=== PATIENT | male | born 1965 | race Caucasian/White ===

== ENCOUNTER 2024-01-05 17:08 | Emergency (ER) | payer MEDICAID, OTHER, SELFPAY ==
[2024-01-05 18:25] LABS: Bilirubin Neg (Negative); Blood, Urine 10 (Negative); Clarity Clear (Clear); Glucose, Urine (Dipstick) Normal (Negative); Ketone, Urine Negative (Negative); Leukocyte Negative (Negative); Nitrite Negative (Negative); Protein, Urine (Dipstick) Negative (Neg-Trace); Urobilinogen Normal mg/dL (Less than 2)
[2024-01-05 18:32] LABS: Bacteria/HPF Rare-Few HPF (None Seen); CAUTI Indications for Culture Pelvic or flank pain; Mucous/LPF Rare LPF (<2+); RBC/HPF 0-3 HPF (0-3); Squamous Epithelial None Seen HPF (0-3); WBC/HPF 0-3 HPF (0-3)
[2024-01-05 18:33] LABS: Urine Culture Reflex No No
[2024-01-05 19:34] LABS: #Basophils 0.06 10x3/uL (0.0-0.2); #Eosinphils 0.58 10x3/uL (0.0-0.5); #Monocytes 0.64 10x3/uL (0.0-1.1); #Neutrophils 2.57 10x3/uL (1.5-8.4); %Basophils 1.1 % (0.0-2.0); %Eosinophils 10.5 % (0.0-6.0); %Lymphocytes 29.9 % (18.0-47.0); %Monocytes 11.5 % (0.0-10.0); %Neutrophils 46.3 % (40.0-75.0); Hematocrit 30.2 % (38.8-50.0); Hemoglobin 10.2 g/dL (13.5-17.5); Mean Corpuscular HGB CONC 33.8 g/dL (32.0-36.0); Mean Corpuscular Hemoglobin 31.1 pg (27.0-33.0); Mean Corpuscular Volume 92.1 fL (81.2-95.1); Mean Platelet Volume 9.6 fL (7.4-10.4); Platelet Count 121 10x3/uL (150-450); RBC Distribution Width 14.5 % (11.5-14.5); Red Blood Cell (RBC) Count 3.28 10x6/uL (4.32-5.72); White Blood Cell (WBC) Count 5.6 10x3/uL (3.5-10.5)
[2024-01-05] MEDS ORDERED: Acetaminophen 500 MG TAB ONE (19:35)
[2024-01-05 19:53] LABS: ALT (SGPT) 12 U/L (8-55); AST (SGOT) 22 U/L (5-34); Albumin 3.3 g/dL (3.5-5.0); Alkaline Phosphatase 47 U/L (40-110); Anion Gap 9 mmol/L (10-20); BUN (Urea Nitrogen) 10 mg/dL (8.4-25.7); Bilirubin, Total 0.2 mg/dL (0.2-1.2); Calc. Creatinine Clearance 0 mL/min (70-130); Calcium 8.7 mg/dL (7.8-10.44); Carbon Dioxide 26 mmol/L (22-29); Chloride 107 mmol/L (98-107); Estimated GFR 73; Glucose 76 mg/dL (70-105); Potassium 4.2 mmol/L (3.5-5.1); Protein, Total 6.3 g/dL (6.0-8.3); Sodium 138 mmol/L (136-145)
[2024-01-06 14:27] LABS: Chlam.trachomatis by PCR,Urine Not Detected (NotDetected); GC N.gonorrhoeae PCR,UrineVOID Not Detected (NotDetected)
== END 2024-01-05 20:54 | disposition home or self-care (01) ==
LOC: CSHERS 17:08
DX: J18.9 Pneumonia, unspecified organism (principal); R31.9 Hematuria, unspecified; R10.9 Unspecified abdominal pain
CPT/HCPCS: 36415; 74176; 80053; 81001; 85025; 87491; 87591; 93005

== ENCOUNTER 2025-03-11 07:48 | Inpatient (IN) | payer OTHER ==
[2025-03-11] MEDS ORDERED: Ondansetron PF 4 MG/2 ML Vial ONE (07:52)
[2025-03-11 08:17] LABS: Glucose, Urine (Dipstick) Normal (Negative); Leukocyte Negative (Negative); Protein, Urine (Dipstick) Negative (Neg-Trace); Specific Gravity, Urine 1.010 (1.005-1.030)
[2025-03-11 08:25] LABS: Cocaine Metabolite Screen Negative (Negative); THC/Cannabinoid Screen Negative (Negative); Tricyclic Screen Negative (Negative)
[2025-03-11 08:26] LABS: Bacteria/HPF None Seen HPF (None Seen); CAUTI Indications for Culture Alt mental st,lethar; RBC/HPF None Seen HPF (0-3); WBC/HPF None Seen HPF (0-3)
[2025-03-11 08:27] LABS: Urine Culture Reflex No No
[2025-03-11 08:36] LABS: #Basophils 0.04 10x3/uL (0.0-0.2); #Eosinophils Less than 0.03 10x3/uL (0.0-0.5); #Monocytes 0.78 10x3/uL (0.0-1.1); #Neutrophils 14.71 10x3/uL (1.5-8.4); %Basophils 0.3 % (0.0-2.0); %Eosinophils 0.1 % (0.0-6.0); %Lymphocytes 1.8 % (18.0-47.0); %Monocytes 4.9 % (0.0-10.0); %Neutrophils 92.5 % (40.0-75.0); Hematocrit 35.1 % (38.8-50.0); Hemoglobin 11.7 g/dL (13.5-17.5); Mean Corpuscular Hemoglobin 32.1 pg (27.0-33.0); Mean Corpuscular Volume 96.4 fL (81.2-95.1); Platelet Count 312 10x3/uL (150-450); Red Blood Cell (RBC) Count 3.64 10x6/uL (4.32-5.72); White Blood Cell (WBC) Count 15.91 10x3/uL (3.5-10.5)
[2025-03-11 08:54] LABS: Acetaminophen Less than 10 mcg/mL (Less than 10); Salicylate Less than 8.0 mg/dL (Less than 8.0)
[2025-03-11 08:56] LABS: ALT (SGPT) 15 U/L (Less than 45); AST (SGOT) 24 U/L (11-34); Albumin 3.5 g/dL (3.1-4.5); Alkaline Phosphatase 62 U/L (40-110); Anion Gap 14 mmol/L (10-20); BUN (Urea Nitrogen) 12 mg/dL (8.4-25.7); Bilirubin, Total 0.2 mg/dL (0.3-1.2); CK (CPK) 115 U/L (30-200); Calc. Creatinine Clearance 0 mL/min (70-130); Calcium 8.3 mg/dL (7.8-10.44); Carbon Dioxide 26 mmol/L (22-29); Chloride 103 mmol/L (98-107); Globulin 3.6 g/dL (2.4-3.5); Glucose 119 mg/dL (70-105); Potassium 4.6 mmol/L (3.5-5.1); Sodium 138 mmol/L (136-145)
[2025-03-11 08:58] LABS: ALV-art Gradient 495.675 mmHg (0-20); Actual Bicarbonate (HCO3a) 28.7 mEq/L (22-28); Analyzer IN Cardio CS ER; Base Excess (BEa) 1.2 mEq/L (-2.0 to +3.0); CO2 Tension 59.7 mmHg (35.0-45.0); Calcium, Ionized (arterial) 1.13 mmol/L (1.12-1.30); Hematocrit-ABG 36 % (42.0-52.0); Hemoglobin (Hb) 12.1 g/dL (14.0-18.0); O2 Tension (PaO2), arterial 142.7 mmHg (80.0-100.0); Potassium - ABG Lab 4.41 mmol/L (3.70-5.30); Puncture Site Right Radial artery; pH, Arterial 7.300 (7.35-7.45)
[2025-03-11 09:02] LABS: Troponin I 0.146 ng/mL (< 0.028)
[2025-03-11] MEDS ORDERED: Dexamethasone 10 MG/ML VIAL ONE (09:05)
[2025-03-11] MEDS ORDERED: Magnesium 2 GM/50 ML BAG (IN WATER) ONE (09:06)
[2025-03-11] MEDS ORDERED: Cefepime 2 GM VIAL ONE (09:39)
[2025-03-11] MEDS ORDERED: Iopamidol 370 76% 100 ML VIAL ONE (10:24)
[2025-03-11 12:49] LABS: Actual Bicarbonate (HCO3a) 26.0 mEq/L (22-28); Analyzer IN Cardio CS ER; Base Excess (BEa) -1.2 mEq/L (-2.0 to +3.0); CO2 Tension 54.2 mmHg (35.0-45.0); Calcium, Ionized (arterial) 1.16 mmol/L (1.12-1.30); Critical Notified Whom: BRICMA; Hematocrit-ABG 37 % (42.0-52.0); Hemoglobin (Hb) 12.7 g/dL (14.0-18.0); O2 Tension (PaO2), arterial 139.2 mmHg (80.0-100.0); Potassium - ABG Lab 5.43 mmol/L (3.70-5.30); Puncture Site Right Radial artery; pH, Arterial 7.299 (7.35-7.45)
[2025-03-11] MEDS ORDERED: Etomidate 40 MG (20 mL) VIAL ONE (12:51)
[2025-03-11 12:52] LABS: ALV-art Gradient 220.850 mmHg (0-20)
[2025-03-11] MEDS ORDERED: Rocuronium Bromide 10 MG/ML (10ML VIAL) ONE (12:52)
[2025-03-11] MEDS ORDERED: PROPOFOL 0 ML ONE (13:09)
[2025-03-11] MEDS ORDERED: Acetaminophen 325 MG TAB PO PRN (14:11)
[2025-03-11] MEDS ORDERED: Electrolyte Replacement Protocol 1 EACH IVPB PRN (14:12)
[2025-03-11] MEDS ORDERED: Ventilator Sedation Protocol 1 EACH FS SCH (14:15)
[2025-03-11] MEDS ORDERED: hydrALAZINE 20 MG/ML VIAL SLOW IVP PRN (14:15)
[2025-03-11] MEDS ORDERED: Albuterol 2.5 MG (3 mL) NEB ONE (14:46)
[2025-03-11] MEDS ORDERED: Ipratropium Bromide 2.5 ml Neb ONE (15:01)
[2025-03-11 16:01] VITALS: BMI 25.3
[2025-03-11] MEDS ORDERED: Fentanyl BOLUS 100 ML IVPB PRN (18:15)
[2025-03-11] MEDS ORDERED: Propofol BOLUS 1,000 MG/100 ML VIAL IV PRN (18:15)
[2025-03-11] MEDS: Clindamycin/D5W 900 MG in Premix 1 BAG IVPB SCH (18:49)
[2025-03-11] MEDS: VANCOMYCIN 1.75 GM/350 ML BAG 1.75 GM in Premix 1 BAG IVPB SCH (18:49)
[2025-03-11] MEDS: Vancomycin 1 GM in Sodium Chloride 0.9% 250 ML 250 ML IVPB SCH (20:48)
[2025-03-12 03:43] LABS: #Basophils Less than 0.03 10x3/uL (0.0-0.2); #Eosinophils Less than 0.03 10x3/uL (0.0-0.5); #Monocytes 0.17 10x3/uL (0.0-1.1); #Neutrophils 11.70 10x3/uL (1.5-8.4); %Basophils 0.1 % (0.0-2.0); %Eosinophils 0.0 % (0.0-6.0); %Lymphocytes 2.5 % (18.0-47.0); %Monocytes 1.4 % (0.0-10.0); %Neutrophils 95.8 % (40.0-75.0); Hematocrit 33.6 % (38.8-50.0); Hemoglobin 11.7 g/dL (13.5-17.5); Mean Corpuscular Hemoglobin 33.0 pg (27.0-33.0); Mean Corpuscular Volume 94.6 fL (81.2-95.1); Platelet Count 324 10x3/uL (150-450); Red Blood Cell (RBC) Count 3.55 10x6/uL (4.32-5.72); White Blood Cell (WBC) Count 12.22 10x3/uL (3.5-10.5)
[2025-03-12 03:53] LABS: Vancomycin, Random 17.9 ug/mL (See Comment)
[2025-03-12 03:57] LABS: ALT (SGPT) 16 U/L (Less than 45); AST (SGOT) 31 U/L (11-34); Albumin 3.1 g/dL (3.1-4.5); Alkaline Phosphatase 53 U/L (40-110); Anion Gap 13 mmol/L (10-20); BUN (Urea Nitrogen) 12 mg/dL (8.4-25.7); Bilirubin, Total 0.3 mg/dL (0.3-1.2); Calc. Creatinine Clearance 94 mL/min (70-130); Calcium 8.1 mg/dL (7.8-10.44); Carbon Dioxide 19 mmol/L (22-29); Chloride 107 mmol/L (98-107); Globulin 3.7 g/dL (2.4-3.5); Glucose 159 mg/dL (70-105); Magnesium 2.2 mg/dL (1.6-2.6); Potassium 3.8 mmol/L (3.5-5.1); Sodium 135 mmol/L (136-145)
[2025-03-12 07:15] LABS: Actual Bicarbonate (HCO3a) 22.9 mEq/L (22-28); Analyzer IN Cardio CS ICU; Base Excess (BEa) -2.0 mEq/L (-2.0 to +3.0); CO2 Tension 39.5 mmHg (35.0-45.0); Calcium, Ionized (arterial) 1.12 mmol/L (1.12-1.30); Critical Notified By: Udy, RRT; Critical Notified Whom: Darlington; Hematocrit-ABG 36 % (42.0-52.0); Hemoglobin (Hb) 12.1 g/dL (14.0-18.0); O2 Tension (PaO2), arterial 93.2 mmHg (80.0-100.0); Potassium - ABG Lab 4.02 mmol/L (3.70-5.30); Puncture Site Right Radial artery; RapidComm Collect By Udy, RRT; pH, Arterial 7.381 (7.35-7.45)
[2025-03-12 07:16] LABS: ALV-art Gradient 106.975 mmHg (0-20)
[2025-03-12] MEDS: Pantoprazole 40 MG VIAL IVP SCH (11:14)
[2025-03-12] MEDS: Enoxaparin 40 MG (0.4 mL) SYRINGE SC SCH (11:14)
[2025-03-12] MEDS ORDERED: Baclofen 10 MG TAB PO PRN (14:27)
[2025-03-12 14:55] VITALS: BMI 25.3
[2025-03-12] MEDS: Gabapentin 400 MG CAP PO SCH (15:46)
[2025-03-12] MEDS: OLANZapine 10 MG VIAL IM SCH (15:46)
[2025-03-12 22:17] VITALS: BP 112/66
[2025-03-13 06:30] LABS: #Basophils Less than 0.03 10x3/uL (0.0-0.2); #Eosinophils Less than 0.03 10x3/uL (0.0-0.5); #Monocytes 0.68 10x3/uL (0.0-1.1); #Neutrophils 12.88 10x3/uL (1.5-8.4); %Basophils 0.0 % (0.0-2.0); %Eosinophils 0.0 % (0.0-6.0); %Lymphocytes 7.0 % (18.0-47.0); %Monocytes 4.6 % (0.0-10.0); %Neutrophils 88.1 % (40.0-75.0); Hematocrit 29.4 % (38.8-50.0); Hemoglobin 9.9 g/dL (13.5-17.5); Mean Corpuscular Hemoglobin 32.6 pg (27.0-33.0); Mean Corpuscular Volume 96.7 fL (81.2-95.1); Platelet Count 263 10x3/uL (150-450); Red Blood Cell (RBC) Count 3.04 10x6/uL (4.32-5.72); White Blood Cell (WBC) Count 14.64 10x3/uL (3.5-10.5)
[2025-03-13 06:49] LABS: Anion Gap 12 mmol/L (10-20); BUN (Urea Nitrogen) 16 mg/dL (8.4-25.7); Calc. Creatinine Clearance 106 mL/min (70-130); Calcium 7.7 mg/dL (7.8-10.44); Carbon Dioxide 21 mmol/L (22-29); Chloride 111 mmol/L (98-107); Glucose 99 mg/dL (70-105); Potassium 4.0 mmol/L (3.5-5.1); Sodium 140 mmol/L (136-145)
[2025-03-13] MEDS: LURASIDONE PO SCH (18:31)
[2025-03-14 05:52] LABS: #Basophils Less than 0.03 10x3/uL (0.0-0.2); #Eosinophils 0.18 10x3/uL (0.0-0.5); #Monocytes 0.69 10x3/uL (0.0-1.1); #Neutrophils 7.15 10x3/uL (1.5-8.4); %Basophils 0.1 % (0.0-2.0); %Eosinophils 1.8 % (0.0-6.0); %Lymphocytes 17.6 % (18.0-47.0); %Monocytes 7.0 % (0.0-10.0); %Neutrophils 73.0 % (40.0-75.0); Hematocrit 30.8 % (38.8-50.0); Hemoglobin 10.3 g/dL (13.5-17.5); Mean Corpuscular Hemoglobin 32.8 pg (27.0-33.0); Mean Corpuscular Volume 98.1 fL (81.2-95.1); Platelet Count 269 10x3/uL (150-450); Red Blood Cell (RBC) Count 3.14 10x6/uL (4.32-5.72); White Blood Cell (WBC) Count 9.81 10x3/uL (3.5-10.5)
[2025-03-14 06:13] LABS: Vancomycin, Random 17.3 ug/mL (See Comment)
[2025-03-14 06:14] LABS: Anion Gap 13 mmol/L (10-20); BUN (Urea Nitrogen) 15 mg/dL (8.4-25.7); Calc. Creatinine Clearance 97 mL/min (70-130); Calcium 7.9 mg/dL (7.8-10.44); Carbon Dioxide 22 mmol/L (22-29); Chloride 109 mmol/L (98-107); Glucose 110 mg/dL (70-105); Potassium 3.8 mmol/L (3.5-5.1); Sodium 140 mmol/L (136-145)
[2025-03-14 07:55] VITALS: TEMP 97.8
[2025-03-14] MEDS: Pantoprazole 40 MG DR.TAB PO SCH (08:58)
[2025-03-14] MEDS: LURASIDONE PO SCH (17:00)
== END 2025-03-14 17:53 | disposition home or self-care (01) | DRG 871 ==
LOC: SUATTDRO 07:48 → CSHERS 07:48 → CSHICU 14:15
PROVIDERS: ADMIT Internal Medicine; ATTEND Hospitalist
PROC: 3E03329 Introduction of Other Anti-infective into Peripheral Vein, Percutaneous Approach (ICD-10-PCS; principal; 2025-03-11)
PROC: 4A133R1 Monitoring of Arterial Saturation, Peripheral, Percutaneous Approach (ICD-10-PCS; 2025-03-11)
PROC: 0T9B70Z Drainage of Bladder with Drainage Device, Via Natural or Artificial Opening (ICD-10-PCS; 2025-03-11)
PROC: 5A1935Z Respiratory Ventilation, Less than 24 Consecutive Hours (ICD-10-PCS; 2025-03-11)
DX: A41.9 Sepsis, unspecified organism (principal); G92.8 Other toxic encephalopathy; J69.0 Pneumonitis due to inhalation of food and vomit; J96.01 Acute respiratory failure with hypoxia; J96.02 Acute respiratory failure with hypercapnia; F50.20 Bulimia nervosa, unspecified; I5A Non-ischemic myocardial injury (non-traumatic); I10 Essential (primary) hypertension; R65.20 Severe sepsis without septic shock; D64.9 Anemia, unspecified; F31.9 Bipolar disorder, unspecified; F43.10 Post-traumatic stress disorder, unspecified; F20.9 Schizophrenia, unspecified; F90.9 Attention-deficit hyperactivity disorder, unspecified type; F10.90 Alcohol use, unspecified, uncomplicated; F42.9 Obsessive-compulsive disorder, unspecified; Z98.890 Other specified postprocedural states; Z79.899 Other long term (current) drug therapy; Z68.25 Body mass index [BMI] 25.0-25.9, adult
CPT/HCPCS: 31500; 36415; 36416; 36600; 51701; 70450; 71045; 71275; 80048; 80053; 80202; 80306; 80307; 81001; 82140; 82550; 82805; 83605; 83735; 83880; 84145; 84484; 85025; 86140; 87040; 87081; 87426; 93005; 94002; 94003; 94640; 94660; 94760; 94762; 96361; 96365; 96366; 96367; 96375; 99292; J0692; J1100; J1650; J2250; J2310; J2405; J2470; J2543; J2704; J2919; J3373; J3375; J3475; J3490; J7030; J7050; J7611; J7620; J7644; Q9967